=== PATIENT | female | born 1990 | race Caucasian/White ===

== ENCOUNTER 2017-01-27 16:19 | Outpatient (CLI) | payer MEDICAID ==
[2017-01-27] MEDS ORDERED: BETAMET ACET/BETAMET NA INJ 6 MG/1 ML IM SCH (16:30)
[2017-01-27] MEDS ORDERED: BETAMET ACET/BETAMET NA INJ 6 MG/1 ML ONE ×2 (16:38→16:43)
== END 2017-01-27 16:48 | disposition home or self-care (01) ==
LOC: LC 16:19
PROVIDERS: ATTEND Obstetrics & Gynecology
DX: O26.90 Pregnancy related conditions, unspecified, unspecified trimester (principal)
CPT/HCPCS: 96372; J0702

== ENCOUNTER → 2017-01-28 | Outpatient (CLI) | payer MEDICAID ==
[~2017-01-28] MED LIST: BETAMET ACET/BETAMET NA INJ 6 MG/1 ML IM PRN; BETAMET ACET/BETAMET NA INJ 6 MG/1 ML ONE
== END ==
LOC: LC 15:49
PROVIDERS: ATTEND Obstetrics & Gynecology
DX: O26.90 Pregnancy related conditions, unspecified, unspecified trimester (principal)
CPT/HCPCS: 96372; J0702

== ENCOUNTER 2017-04-06 10:09 | Outpatient (CLI) | payer MEDICAID ==
--- NOTE | 2017-04-06 10:54 | Non Stress Test Report ---
Non Stress Test Datetime Report Generated by CPN: 04/06/2017 10:53 INDICATION Indication for Study: Multiple Gestation MONITORING Monitor Explained: Monitor Explained; Test Explained; Patient Verbalized Understanding Time on Monitor: 04/06/2017 10:26 Time off Monitor: 04/06/2017 10:46 NST Duration: 20 NST INTERVENTIONS NST Interventions: PO Hydration Physician Notified NST: H Addison CNM BABY A: [id number] BABY A Movement : Present Contraction Frequency : x0 FHR Baseline : 135 Accelerations : 15X15 Decelerations : None Variability : Moderate 6-25bpm NST Review: Meets Criteria for Reactive NST NST Results: Reactive BABY B Movement: Present NST REPORT Report Trigger: Send Report
== END 2017-04-06 10:49 | disposition home or self-care (01) ==
LOC: LC 10:09
PROVIDERS: ATTEND Obstetrics & Gynecology
PROC: 4A1HXCZ Monitoring of Products of Conception, Cardiac Rate, External Approach (ICD-10-PCS; principal; 2017-04-06)
DX: Z34.93 Encounter for supervision of normal pregnancy, unspecified, third trimester (principal); Z3A.34 34 weeks gestation of pregnancy
CPT/HCPCS: 59025

== ENCOUNTER 2017-04-08 17:28 | Inpatient (IN) | payer MEDICAID ==
[2017-04-08] MEDS ORDERED: RINGERS SOLUTION,LACTATED 300 ML IV ONE (17:42)
[2017-04-08] MEDS ORDERED: RINGERS SOLUTION,LACTATED 1,000 ML IV PRN ×2 (17:42→22:14)
[2017-04-08] MEDS ORDERED: CITRIC ACID/SODIUM CITRATE ORAL SOLN 15 ML UDCUP ONE (17:45)
[2017-04-08] MEDS ORDERED: CEFAZOLIN 2 GM/D5W RTU 2 GM/50 ML RTUPB IV ONE (17:45)
[2017-04-08] MEDS ORDERED: CEFAZOLIN 2 GM/D5W RTU 2 GM/50 ML RTUPB IV SCH (18:00)
[2017-04-08] MEDS ORDERED: OXYTOCIN 10 UNIT/ML VIAL ONE (18:22)
[2017-04-08] MEDS ORDERED: FENTANYL CITRATE INJ/PF 100 MCG/2 ML AMPUL ONE (18:22)
[2017-04-08] MEDS ORDERED: EPHEDRINE SULFATE INJ 50 MG/1 ML AMPULE ONE (18:23)
[2017-04-08] MEDS ORDERED: OXYTOCIN/NORMAL SALINE 20 UNIT/1,000 ML RTUINJ ONE (18:23)
[2017-04-08] MEDS ORDERED: ONDANSETRON HCL INJ/PF 4 MG/2 ML SDV ONE (18:23)
[2017-04-08] MEDS ORDERED: MIDAZOLAM 2 MG/2 ML INJ ONE (18:23)
[2017-04-08 18:24] LABS: ABSOLUTE LYMPHOCYTES (AUTO) 2.5 10^3/uL (0.5-4.7); ABSOLUTE MONOCYTES (AUTO) 0.8 10^3/uL (0.1-1.4); ABSOLUTE NEUT (AUTO) 8.5 10^3/uL (1.7-8.2); BASOPHILS % (AUTO) 0.2 % (0-2); EOSINOPHILS % (AUTO) 0.2 % (0-6); HEMATOCRIT 32.8 % (36.0-47.0); HEMOGLOBIN 11.4 g/dL (12.0-15.5); HGB HCT DIFFERENCE 1.4; LYMPHOCYTES % (AUTO) 21.1 % (13-45); MEAN CORPUSCULAR HEMOGLOBIN 29.3 pg (27.0-33.4); MEAN CORPUSCULAR HGB CONC 34.7 g/dL (32.0-36.0); MEAN CORPUSCULAR VOLUME 85 fl (80-97); RED BLOOD COUNT 3.88 10^6/uL (3.72-5.28); RED CELL DISTRIBUTION WIDTH 14.5 % (11.5-14.0); SEGMENTED NEUTROPHILS % (AUTO) 71.5 % (42-78); WHITE BLOOD COUNT 11.9 10^3/uL (4.0-10.5)
[2017-04-08 18:42] LABS: APPEARANCE,URINE SLIGHTLY-CLOUDY; BILIRUBIN,URINE NEGATIVE (NEGATIVE); GLUCOSE, URINE NEGATIVE (NEGATIVE); KETONES,URINE 80 mg/dL (NEGATIVE); LEUKOCYTE ESTERASE,URINE NEGATIVE (NEGATIVE); NITRITE,URINE NEGATIVE (NEGATIVE); PROTEIN,URINE NEGATIVE (NEGATIVE); URINE SPECIFIC GRAVITY 1.011; UROBILINOGEN,URINE NEGATIVE mg/dL (<2.0)
[2017-04-08 18:52] LABS: URINE BARBITURATES SCREEN NEGATIVE; URINE METHADONE SCREEN NEGATIVE; URINE OPIATES LOW NEGATIVE; URINE PHENCYCLIDINE SCREEN NEGATIVE
[2017-04-08] MEDS ORDERED: NALBUPHINE HCL INJ 10 MG/1 ML AMPULE IM ONE (18:57)
[2017-04-08] MEDS ORDERED: FENTANYL CITRATE INJ/PF 100 MCG/2 ML AMPUL IV PRN ×3 (18:57)
[2017-04-08] MEDS ORDERED: MEPERIDINE HCL/PF INJ 25 MG/1 ML DISP.SYRIN IV PRN (18:57)
[2017-04-08] MEDS ORDERED: MORPHINE SULFATE 10 MG/ML INJ IV PRN (18:57)
[2017-04-08] MEDS ORDERED: DIPHENHYDRAMINE HCL 50 MG/ML VIAL IV PRN (18:57)
[2017-04-08] MEDS ORDERED: PROMETHAZINE HCL INJ 25 MG/1 ML VIAL IV PRN ×3 (18:57→19:04)
[2017-04-08] MEDS ORDERED: OXYCODONE-ACETAMINOPHEN 5-325 MG TABLET PO PRN ×4 (18:57→22:14)
[2017-04-08] MEDS ORDERED: DIPH/PERTUSS(ACELL)/TETANUS VAC/PF 0.5 ML SYR (>=10YO) IM PRN (19:04)
[2017-04-08] MEDS ORDERED: DEXTROSE 50%-WATER 25 GM/50 ML DISP.SYRIN IV PRN ×2 (19:04)
[2017-04-08] MEDS ORDERED: GLUCAGON,HUMAN RECOMB 1 MG INJ SUBCUT PRN (19:04)
[2017-04-08] MEDS ORDERED: OXYTOCIN/NORMAL SALINE 20 UNIT/1,000 ML RTUINJ IV PRN (19:04)
[2017-04-08] MEDS ORDERED: DEXTROSE 40% GEL 15 GM TUBE PO PRN ×2 (19:04)
[2017-04-08] MEDS ORDERED: ACETAMINOPHEN 325 MG TABLET PO PRN (19:04)
[2017-04-08] MEDS ORDERED: MEASLES,MUMPS&RUBELLA VACC/PF 0.5 ML VIAL SUBCUT PRN (19:04)
[2017-04-08] MEDS ORDERED: SIMETHICONE 80 MG TAB.CHEW PO PRN (19:04)
--- NOTE | 2017-04-08 19:13 | Operative Report ---
Operative Report PREOPERATIVE DIAGNOSIS: IUP 34.6 weeks. Gestational hypertension. 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 She was prepped and draped in a sterile fashion. After adequate spinal anesthesia was obtained a Pfannenstiel incision was made and extended through the subcutaneous tissue and fascia with sharp dissection. Rectus muscles were bluntly divided and parietoperitoneum was entered with blunt dissection. Uterus was nicked in the midline extended bilaterally with blunt dissection. Infant a was then delivered via breech extraction through the uterine and abdominal incision nose and mouth suctioned with bulb syringe cord was clamped and the infant was passed from the table. B was then delivered vertex through the uterine abdominal incision nose and mouth suctioned with bulb syringe cord was passed from the table. Placenta was manually extracted. Uterus closed in 2 layers a first a running stitch of 2-0 Vicryl and the second a Lembert stitch imbricating the first layer. Hemostasis was noted. The fascia closed with 0 Vicryl and skin was closed with subcuticular absorbable roxanne. Infant went to nursery in good condition and the mother to recovery room good condition urine remained clear throughout the procedure.
[2017-04-08] MEDS ORDERED: MORPHINE SULFATE 10 MG/ML INJ ONE (20:46)
--- NOTE | 2017-04-08 21:21 | Admission Physical ---
Datetime Report Generated by CPN: 04/08/2017 21:21 CURRENT ADMISSION Chief Complaint Other: TTTS post ablation and hypertension Indication for Induction: Not Applicable Indication for Induction: , Intrauterine ; No Active Labor; Intact Membranes; Primary Section Admit Plan: Admit to Unit; Initiate Section Protocol ALLERGIES Medication Allergies: Yes Medication Allergies: sulfamethoxazole/Acute Kidney Fa (04/08/2017); trimethoprim/Acute Kidney Fa (04/08/2017) Medication Allergies: sulfamethoxazole/Acute Kidney Fa (04/07/2017); trimethoprim/Acute Kidney Fa (04/07/2017) Medication Allergies: Sulfa (Sulfonamide Antibiotics) (04/06/2017) Latex: No Latex Allergies Food Allergies: no Environmental Allergies: no OBSTETRICAL HISTORY EDC: 05/14/2017 00:00 : 1 Para: 0 Term: 0 : 0 SAB: 0 IAB: 0 Ectopic: 0 Livin Cesareans: 0 VBACs: 0 Multiple Births: 0 Gestational Diabetes: No Rh Sensitization: No Incompetent Cervix: No CARMELA: No Infertility: No ART Treatment: No Uterine Anomaly: No IUGR: No Hx Previous C/S: No Macrosomia: No Hx Loss/Stillborn: No PIH: Yes Hx : No Placenta Previa/Abruption: No Depression/PP Depression: No PTL/PROM: No Post Hemorrhage: No Current Procedures: Ultrasound Obstetrical History Comments: acute kidney failure due to bactrim SEE RECORDS Alcohol: No Marijuana : No Cocaine: No Other Illicit Drugs: No Cigarettes: Former Smoker. [id number] MEDICAL HISTORY Diabetes: No Blood Transfusion: No Pulmonary Disease (Asthma, TB): No Breast Disease: No Hypertension: Yes Dyeing Machine Tender Surgery: No Heart Disease: No Hosp/Surgery: Yes Autoimmune Disorder: No Anesthetic Complications: No Kidney Disease: No Abnormal Pap Smear: No Neuro/Epilepsy: No Psychiatric Disorders: No Other Medical Diseases: No Hepatitis/Liver Disease: No Significant Family History: No Varicosities/Phlebitis: No Trauma/Violence : No Thyroid Dysfunction: No Medical History Comments: kidney failure due to bactrim exposure INFECTIOUS HISTORY Gonorrhea: No Genital Herpes: No Chlamydia: No Tuberculosis: No Syphilis: No Hepatitis: No HIV/AIDS Exposure: No Rash or Viral Illness: No HPV: No PHYSICAL EXAM General: Normal HEENT: Normal Neurologic: Normal Thyroid: Deferred Heart: Normal Lungs: Normal Breast: Deferred Back: Normal Abdomen: Normal Genitourinary Exam: Normal Extremities: Normal DTRs: Normal Pelvic Type: Adequate VAGINAL EXAM Dilatation: 0 FETUS A Monitoring: External US Admit Comment: pt admitted for twins mon/di TTTS post ablation and now hypertenive FETUS B Monitoring: External US PLANS FOR LABOR AND DELIVERY Labor and Delivery: None Pain Management: Spinal Feeding Preference: Both Benefit of Breast Feed Discussed: Yes Circumcision: Yes INFORMED CONSENT Informed Consent Obtained: Section Delivery Signature: with User ID: [email or web address]
[2017-04-08] MEDS ORDERED: HYDROMORPHONE HCL 2 MG TABLET PO PRN (22:17)
[2017-04-08] MEDS: IBUPROFEN 800 MG TABLET PO SCH (22:54)
[2017-04-09] MEDS: KETOROLAC TROMETHAMINE INJ/PF 30 MG/1 ML SDV IV SCH ×3 (00:11→17:09)
[2017-04-09] MEDS: OXYCODONE-ACETAMINOPHEN 5-325 MG TABLET PO PRN ×3 (04:30→13:34)
[2017-04-09 06:01] LABS: HEMATOCRIT 27.9 % (36.0-47.0); HEMOGLOBIN 9.6 g/dL (12.0-15.5); HGB HCT DIFFERENCE 0.9; MEAN CORPUSCULAR HEMOGLOBIN 29.2 pg (27.0-33.4); MEAN CORPUSCULAR HGB CONC 34.3 g/dL (32.0-36.0); MEAN CORPUSCULAR VOLUME 85 fl (80-97); RED BLOOD COUNT 3.27 10^6/uL (3.72-5.28); RED CELL DISTRIBUTION WIDTH 14.3 % (11.5-14.0); WHITE BLOOD COUNT 11.4 10^3/uL (4.0-10.5)
[2017-04-09] MEDS ORDERED: IRON FUM PO SCH (10:00)
[2017-04-09] MEDS ORDERED: PRENATAL PO SCH (10:00)
[2017-04-09] MEDS ORDERED: FOLIC PO SCH (10:00)
[2017-04-09] MEDS ORDERED: [UNRECOGNIZED DRUG - OTHER] PO SCH (10:00)
[2017-04-09] MEDS ORDERED: DHA PO SCH (10:00)
[2017-04-09] MEDS: PRENATAL VITAMIN W DHA CAPSULE PO SCH (10:10)
[2017-04-09] MEDS: DOCUSATE SODIUM 100 MG CAPSULE PO SCH ×2 (10:10→17:09)
--- NOTE | 2017-04-09 11:19 | PDOC PROGRESS REPORT ---
Subjective-OB Subjective: Post Delivery Day: 1 26 year old. Denies any needs at this time, passing gas, tolerating diet, lochia is stable, voiding without difficulty, pain well controlled. Physical Exam (OB) Vital Signs: Temp Pulse Resp BP Pulse Ox 98.2 F 75 16 136/90 H 99 04/09/17 07:30 04/09/17 07:30 04/09/17 07:30 04/09/17 07:30 04/09/17 07:30 Intake & Output 04/08/17 04/09/17 04/10/17 06:59 06:59 06:59 Output Total 1300 Balance -1300 Weight 99.79 kg - Dressing Removed: No - medipore dressing in place Incision: Dressing Closure Type: medi pore - Lochia Lochia Amount: Scant < 10 ml Lochia Color: Rubra/Red - Abdomen Description: Tender, Soft Hernia Present: No Fundal Description: Firm, Midline Fundal Height: u/u - u/2 Objective-Diagnostic Laboratory: 04/09/17 05:40 04/08/17 04/08/17 04/08/17 17:37 18:05 18:05 WBC 11.9 H RBC 3.88 Hgb 11.4 L Hct 32.8 L MCV 85 MCH 29.3 MCHC 34.7 RDW 14.5 H Plt Count 166 Seg Neutrophils % 71.5 Lymphocytes % 21.1 Monocytes % 7.0 Eosinophils % 0.2 Basophils % 0.2 Absolute Neutrophils 8.5 H Absolute Lymphocytes 2.5 Absolute Monocytes 0.8 Absolute Eosinophils 0.0 Absolute Basophils 0.0 Urine Color YELLOW Urine Appearance SLIGHTLY-CLOUDY Urine pH 6.0 Ur Specific [place] 1.011 Urine Protein NEGATIVE Urine Glucose (UA) NEGATIVE Urine Ketones 80 H Urine Blood NEGATIVE Urine Nitrite NEGATIVE Ur Leukocyte Esterase NEGATIVE Urine WBC (Auto) 3 Urine RBC (Auto) 1 Blood Type A POSITIVE Antibody Screen NEGATIVE 04/09/17 05:40 WBC 11.4 H RBC 3.27 L Hgb 9.6 L Hct 27.9 L MCV 85 MCH 29.2 MCHC 34.3 RDW 14.3 H Plt Count 141 L Seg Neutrophils % Lymphocytes % Monocytes % Eosinophils % Basophils % Absolute Neutrophils Absolute Lymphocytes Absolute Monocytes Absolute Eosinophils Absolute Basophils Urine Color Urine Appearance Urine pH Ur Specific [place] Urine Protein Urine Glucose (UA) Urine Ketones Urine Blood Urine Nitrite Ur Leukocyte Esterase Urine WBC (Auto) Urine RBC (Auto) Blood Type Antibody Screen Assessment and Plan(PN) - Assessment and Plan (1) Twin , delivered by section, current hospitalization Is this a current diagnosis for this admission?: Yes Plan: routine post op care (2) Acute blood loss anemia Is this a current diagnosis for this admission?: Yes Plan: ferrous sulfate increase dietary iron - Time Spent with Patient Time with patient: Less than 15 minutes Critical Time spent with patient: Less than 15 minutes Medications reviewed and adjusted accordingly: Yes - Disposition Anticipated Discharge: Home Within: within 48 hours
[2017-04-10] MEDS: IBUPROFEN 800 MG TABLET PO SCH ×2 (03:11→09:18)
[2017-04-10] MEDS: OXYCODONE-ACETAMINOPHEN 5-325 MG TABLET PO PRN (05:08)
[2017-04-10] MEDS: PRENATAL VITAMIN W DHA CAPSULE PO SCH (09:18)
[2017-04-10] MEDS: DOCUSATE SODIUM 100 MG CAPSULE PO SCH (09:18)
[2017-04-10 09:35] VITALS: BP 131/78
--- NOTE | 2017-04-10 09:37 | PDOC DISCHARGE SUMMARY ---
Final Diagnosis Discharge Date: 04/10/17 - Final Diagnosis (1) Twin , delivered by section, current hospitalization Is this a current diagnosis for this admission?: Yes (2) Acute blood loss anemia Is this a current diagnosis for this admission?: Yes Discharge Data - Discharge Medication Home Medications: 95/Iron Fum/Folic/Dha [ + Dha Combo Pack] 1 tab PO DAILY Docusate Sodium [Colace 100 mg Capsule] 100 mg PO BID #60 capsule 04/10/17 Ferrous Sulfate 325 mg PO BID #60 tablet. 04/10/17 Ibuprofen [Motrin 800 mg Tablet] 800 mg PO Q6A #60 tablet 04/10/17 Oxycodone HCl/Acetaminophen [Percocet 5-325 mg Tablet] 2 tab PO Q4HP PRN #30 tablet 04/10/17 Gestational Age: 34.6 Reason(s) for Admission: Ceasarean Section-Primary, Twins Procedures: NST Intrapartum Procedure(s): : Low Cervical, Transverse - Baxter Data Baby 1 Male Home with Mother: No Complications: Yes - pre term Baby 2 Male Home with Mother: No Complications: Yes - pre term - Diagnosis Test Laboratory: Temp Pulse Resp BP Pulse Ox 98.7 F 73 16 135/80 H 100 04/10/17 09:25 04/10/17 09:25 04/10/17 09:25 04/10/17 09:25 04/10/17 09:25 04/08/17 04/08/17 04/09/17 17:37 18:05 05:40 RBC 3.88 3.27 L Hgb 11.4 L 9.6 L Hct 32.8 L 27.9 L Urine Opiates Screen NEGATIVE - Discharge information/Instructions Discharge Activity: Activity As Tolerated, Balance Activity w/Rest, No Driving, No Lifting Over 10 Pounds, No Lifting/Push/Pulling, Pelvic Rest, No tub bath Discharge Diet: Regular Disposition: HOME, SELF-CARE Follow up with: [facility] in: 1, Weeks - bp check, incision check
--- NOTE | 2017-04-10 09:39 | PDOC PROGRESS REPORT ---
Subjective-OB Subjective: Post Delivery Day: 2 26 year old. Denies any needs at this time, unsure about d/c today because twins in nicu, tolerating diet, lochia is well controlled, voiding without difficulty. Physical Exam (OB) Vital Signs: Temp Pulse Resp BP Pulse Ox 98.7 F 73 16 131/78 H 100 04/10/17 09:31 04/10/17 09:31 04/10/17 09:31 04/10/17 09:31 04/10/17 09:31 Intake & Output 04/09/17 04/10/17 04/11/17 06:59 06:59 06:59 Intake Total 1640 360 Output Total 1300 Balance -1300 1640 360 - Dressing Removed: Yes Incision: Well Approximated Closure Type: Sutures - Lochia Lochia Amount: Scant < 10 ml Lochia Color: Rubra/Red - Abdomen Description: Tender, Soft, Round Hernia Present: No Fundal Description: Firm, Midline Fundal Height: u/u - u/2 Objective-Diagnostic Laboratory: 04/09/17 05:40 Assessment and Plan(PN) - Assessment and Plan (1) Twin , delivered by section, current hospitalization Is this a current diagnosis for this admission?: Yes Plan: routine postop care may d/c home ir cancel dc if necessary (2) Acute blood loss anemia Is this a current diagnosis for this admission?: Yes Plan: ferrous sulfate - Time Spent with Patient Time with patient: Less than 15 minutes Critical Time spent with patient: Less than 15 minutes Medications reviewed and adjusted accordingly: Yes - Disposition Anticipated Discharge: Home Within: within 24 hours
== END 2017-04-10 13:17 | disposition home or self-care (01) | DRG 765 ==
LOC: LR 17:28 → 2S 21:45
PROVIDERS: ADMIT Obstetrics & Gynecology Gynecology; ATTEND Pediatrics
PROC: 10D00Z1 Extraction of Products of Conception, Low, Open Approach (ICD-10-PCS; principal; 2017-04-08)
PROC: 3E0234Z Introduction of Serum, Toxoid and Vaccine into Muscle, Percutaneous Approach (ICD-10-PCS; 2017-04-10)
DX: O13.4 Gestational [pregnancy-induced] hypertension without significant proteinuria, complicating childbirth (principal); O30.033 Twin pregnancy, monochorionic/diamniotic, third trimester; O90.4 Postpartum acute kidney failure; O32.1XX1 Maternal care for breech presentation, fetus 1; O43.023 Fetus-to-fetus placental transfusion syndrome, third trimester; Z3A.34 34 weeks gestation of pregnancy; Z37.2 Twins, both liveborn; Z23 Encounter for immunization
CPT/HCPCS: 1961; 36415; 80307; 81001; 85025; 85027; 86592; 86850; 86900; 86901; 88307; 90715; 94799; J0690; J1885; J2250; J2270; J2405; J2590; J3010; J3490; J7120